=== PATIENT | male | born 1985 | race Caucasian/White ===

== ENCOUNTER 2018-08-15 01:19 | Emergency (ER) | payer OTHER ==
[2018-08-15] MEDS: LIDOCAINE 1% (MPF) 5 ML VIAL INJ (03:17)
== END 2018-08-15 05:25 | disposition home or self-care (01) ==
LOC: FTE 01:19
DX: L02.01 Cutaneous abscess of face (principal)
CPT/HCPCS: 10060; 99282-25

== ENCOUNTER 2018-08-17 10:13 | Emergency (ER) | payer OTHER | END 2018-08-17 12:05 | disposition home or self-care (01) | LOC: FTE 10:13 | DX: Z48.01 Encounter for change or removal of surgical wound dressing (principal) | CPT/HCPCS: 99281; Z7502 ==